=== PATIENT | female | born 1930 | race Caucasian/White ===

== ENCOUNTER 2018-05-25 14:07 | Inpatient (IN) | payer MEDICARE ==
[2018-05-25 14:33] VITALS: BMI 27.6
[2018-05-25] MEDS ORDERED: Acetaminophen 500 MG TAB PO PRN (19:53)
[2018-05-25] MEDS ORDERED: Ondansetron ODT 4 MG TAB PO PRN (19:53)
[2018-05-25] MEDS ORDERED: Ondansetron PF 4 MG/2 ML Vial IVP PRN (19:53)
[2018-05-25] MEDS ORDERED: hydrALAZINE 20 MG/ML VIAL SLOW IVP PRN (19:53)
--- NOTE | 2018-05-25 19:54 | CON ---
DATE OF CONSULTATION: 05/25/2018 GASTROENTEROLOGY CONSULTATION CHIEF COMPLAINT: GI bleeding. HISTORY OF PRESENT ILLNESS: Ms. Burleson is an 88-year-old woman who had onset of red bloody stool s on Tuesday. She went to the hospital in [place] and was admitted and has continued to have red bloody stools daily since then. She was doing better on Tuesday and ate some food and then later that evening again started having bleeding again. She received 4 units transfusion over the course of at hospitalization. Ultimately, this morning due to the repeated requirement for blood transfusion a nd ongoing bleeding lasting longer than the usual diverticular bleed, she was transferred from [facility] to [place] for further care. She has had no bloody bowel movement today so far; however, she has had blood on the toilet paper just when wiping. She had her last blood transfusion last night. Her last bloody stool was yesterday. She has had no nausea or vomiting and no abdominal pain. She h ad a diverticular bleed back in 2014 and underwent upper and lower endoscopy by Dr. Marcial. She had a couple of polyps removed at that time. Left-sided diverticulosis was seen. She was admitted later t hat same month in 2014 and had a bleeding scan, which was negative. She has had no further GI bleedi ng over the last 3-1/2 years until now. PAST MEDICAL HISTORY: 1. Recurrent lower gastrointestinal bleed secondary to diverticulosis. 2. Hypertension. 3. Hyperlipidemia. PAST SURGICAL HISTORY: Mastectomy for breast cancer, hysterectomy, cholecystectomy, EGD and colonosc opy. FAMILY HISTORY: Negative for GI malignancy. SOCIAL HISTORY: No alcohol, tobacco or drugs. ALLERGIES: OMAIRA INHIBITORS. MEDICATIONS: Meloxicam, pantoprazole, ferrous sulfate, diltiazem, alprazolam, MiraLax 17 grams daily . REVIEW OF SYSTEMS: Negative x10 systems reviewed except as stated in the history of present illness. PHYSICAL EXAMINATION: VITAL SIGNS: Temperature 98.1, pulse 67, blood pressure 155/71. GENERAL: She is in no acute distress, alert and oriented x3. HEENT: Eyes have no scleral icterus. Oropharynx is clear without lesions. NECK: No cervical or supraclavicular lymphadenopathy. LUNGS: Clear to auscultation bilaterally. HEART: Regular rate and rhythm without murmur. ABDOMEN: Soft, nontender, nondistended. Bowel sounds are present. EXTREMITIES: No lower extremity edema. NEUROLOGIC: Cranial nerves are grossly intact. IMPRESSION: Recurrent diverticular bleeding, required blood transfusion. She had colonoscopy in that did show bloody effluent, but no focal diverticulum identified at that time as the bleeding so urce. She had left-sided diverticulosis seen. Upper endoscopy was negative. RECOMMENDATIONS: Given that she is still passing some red blood, however, smaller volume today, we w ill follow through with bleeding scan now. If the bleeding scan is negative, then we will continue c onservative management. If the bleeding scan shows ongoing active bleeding, then we will consider co lonoscopy as the bleeding has been going on for 5 days now and she is requiring multiple units of tra nsfusion.
[2018-05-25] MEDS ORDERED: Potassium Chloride 20 MEQ TAB PO SCH (20:30)
[2018-05-25] MEDS ORDERED: Prevnar 13-Val Conj/PF 0.5 ML SYRINGE IM ONE (21:00)
--- NOTE | 2018-05-25 21:29 | NM ---
NUCLEAR MEDICINE GI BLEEDING EXAMINATION 05/25/18 RADIOPHARMACEUTICAL: 27 millicuries of technetium 99m tagged RBC IV. INDICATION: Diverticular bleed. FINDINGS: No abnormal focal collection of radiotracer that accumulates with time and move with time is demonstr ated to suggest active GI bleeding. Urinary bladder activity and urinary excretory activity is seen o verlying the lower pelvis. Blood pool activity is seen within the background. IMPRESSION: No evidence of active GI bleed demonstrated. POS: ONEMY
[2018-05-25] MEDS: Ferrous Sulfate 325 MG TAB PO SCH (21:30)
[2018-05-25] MEDS: Temazepam 15 MG CAP PO PRN (21:30)
[2018-05-25] MEDS: ALPRAZolam 0.5 MG TAB PO SCH (21:30)
--- NOTE | 2018-05-26 01:54 | HP ---
DATE OF ADMISSION: 05/25/2018 PRIMARY CARE PROVIDER: Tyrone Neil M.D. CHIEF COMPLAINT: GI bleed. HISTORY OF PRESENT ILLNESS: This is an 88-year-old female who presented to [facility] in transfer from [facility] where patient was recently admitted for approx imately 4-5 days for gastrointestinal bleed, suspected diverticular in source. The patient underwent CT of the abdomen and pelvis on 05/23/2018 showing moderate colonic diverticulosis involving the sánchez cending and sigmoid colon. The patient received a total of 4 units of packed red blood cells during her hospital course with hemoglobin ranging between 6.6 to 9.6. The patient received IV fluids as we ll as general supportive care; however, had recurrent hematochezia, prompting her attending physician Dr. Raji Parker to transfer to [facility] for GI consultation and evaluation. The tamar ent states she had episode of diverticular bleed in 2014 and was admitted to [facility] in 0 02/2015. The patient was conservatively managed during the admission in 2014 with resolution of her s ymptoms. The patient denies any specific abdominal pain and states she has had very little to eat ov er the last 4-5 days, mainly liquids and soft diet. The patient denies any fever, chills, nausea, or vomiting. The patient denies taking any chronic anti-inflammatories or oral anticoagulation medicat ions. PAST MEDICAL HISTORY: 1. Diverticulosis with diverticular bleed in 2014. 2. Hypertension. 3. Hyperlipidemia. 4. Anxiety disorder. PAST SURGICAL HISTORY: 1. Status post left breast mastectomy. 2. Status post total hysterectomy. 3. Status post cholecystectomy. CURRENT MEDICATIONS: 1. Xanax 0.5 mg p.o. b.i.d. 2. Mobic 15 mg p.o. daily. 3. Diltiazem CD 300 mg p.o. daily. 4. Ferrous sulfate 325 mg p.o. b.i.d. 5. Protonix 40 mg p.o. daily. 6. MiraLax 17 grams p.o. daily. ALLERGIES: OMAIRA INHIBITORS. FAMILY HISTORY: Mother with breast cancer. Father with coronary artery disease. SOCIAL HISTORY: The patient resides in [place], [place]. Accompanied by her daughter in the hospit al. No current alcohol, tobacco or illicit drug use. Functional of all activities of daily living. REVIEW OF SYSTEMS: The following complete review of systems was negative, unless otherwise mentioned in the HPI or below: Constitutional: Weight loss or gain, ability to conduct usual activities. Ski n: Rash, itching. Eyes: Double vision, pain. ENT/Mouth: Nose bleeding, neck stiffness, pain, tend erness. Cardiovascular: Palpitations, dyspnea on exertion, orthopnea. Respiratory: Shortness of b reath, wheezing, cough, hemoptysis, fever or night sweats. Gastrointestinal: Poor appetite, abdomin al pain, heartburn, nausea, vomiting, constipation, or diarrhea. Genitourinary: Urgency, frequency, dysuria, nocturia. Musculoskeletal: Pain, swelling. Neurologic/Psychiatric: Anxiety, depression. Allergy/Immunologic: Skin rash, bleeding tendency. Otherwise negative except as stated per HPI. PHYSICAL EXAMINATION: VITAL SIGNS: On admission, blood pressure 155/71, pulse 67, respiratory rate 20, temperature 98.1 de grees Fahrenheit, O2 saturation 99% on room air. GENERAL APPEARANCE: This is an 88-year-old female, alert and oriented x3, pleasant, respon sive, in no acute distress. HEENT: Pupils are equal, round, and reactive to light and accommodation. Extraocular muscles are in tact. No scleral icterus, no conjunctival injection. Nares patent. OP is clear. Teeth in good rep air. NECK: Supple, no cervical adenopathy, no thyromegaly, no carotid bruits, no JVD appreciated. Cervic al spine with full active and passive range of motion. No meningeal signs appreciated. CHEST: Lungs are clear to auscultation bilaterally. CARDIOVASCULAR: S1, S2, without noted murmur, rub or gallop. ABDOMEN: Rounded, soft, nontender, nondistended. Bowel sounds are positive in all four quadrants. There is no hepatosplenomegaly, no abdominal bruits, no rebound or guarding appreciated. EXTREMITIES: Warm and dry with fair turgor. No clubbing, cyanosis or asymmetric edema appreciated. Multiple bruises noted on the upper extremities and forearms. NEUROLOGIC: Cranial nerves II-XII are grossly intact. No focal or lateralizing signs appreciated. PERTINENT LABORATORY AND X-RAY FINDINGS: Sodium 139, potassium 3.0, chloride 104, CO2 of 27, BUN 10. 9, creatinine 0.6. LFTs within normal limits. CBC showed a white blood cell count of 6.83; hemoglob in 8.9, previously noted 6.7; hematocrit 25.2; platelet count [address] of th e abdomen and pelvis dated 05/23/2018 showed diverticulosis of the descending and sigmoid colon with mild fat stranding giving an appearance of chronic changes with slight wall thickening. ASSESSMENT AND PLAN: 1. Lower gastrointestinal bleed. Suspect diverticular in source given patient's history and finding s on CT imaging. Status post 4 units of packed red blood cells over the last 5 days. Tagged red blo od cell bleeding scan performed on 05/25/2018 showed no evidence of acute blood loss. Continue seria l CBC assessment and repeat hemoglobin in the a.m. 2. Acute blood loss anemia secondarily to gastrointestinal bleed. See #1 above. Repeat CBC in the a.m. Avoid anticoagulation and NSAIDs. 3. Hypertension. Resume home antihypertensive regimen and monitor clinical response. 4. Hypokalemia. Potassium chloride 40 mEq p.o. b.i.d. and repeat potassium level in the a.m. 5. Anxiety disorder. Resume home Xanax 0.5 mg p.o. b.i.d. 6. Prophylaxis. Sequential compression devices while in bed. PT for ambulation and functional asse ssment. 7. Code status is FULL. Surrogate medical decision maker is the patient's daughter.
[2018-05-26 05:41] LABS: Anion Gap 9 mmol/L (10-20); BUN (Urea Nitrogen) 10 mg/dL (9.8-20.1); Calc. Creatinine Clearance 70 mL/min (70-130); Carbon Dioxide 29 mmol/L (23-31); Chloride 103 mmol/L (98-107); Estimated GFR-MDRD 89; Glucose 86 mg/dL (83-110); Potassium 3.7 mmol/L (3.5-5.1); Sodium 137 mmol/L (136-145)
[2018-05-26 05:44] LABS: Band 8 % (5-11); Eosinophils 3 % (0-10); Hemoglobin 8.8 g/dL (12.0-16.0); Lymphocytes 14 % (21-51); MDiff Complete? YES; Mean Corpuscular HGB CONC 32.5 g/dL (32.0-36.0); Mean Corpuscular Hemoglobin 30.2 pg (27.0-31.0); Mean Corpuscular Volume 92.8 fL (78.0-98.0); Mean Platelet Volume 7.3 fL (7.4-10.4); Monocytes 10 % (0-10); Neutrophil 65 % (42-75); Platelet Count 226 thou/uL (130-400); RBC Distribution Width 14.1 % (11.5-14.5); White Blood Cell (WBC) Count 6.5 thou/uL (4.8-10.8)
[2018-05-26] MEDS: Ferrous Sulfate 325 MG TAB PO SCH ×2 (08:30→20:31)
[2018-05-26] MEDS: ALPRAZolam 0.5 MG TAB PO SCH ×2 (08:30→20:31)
[2018-05-26] MEDS: Potassium Chloride 20 MEQ TAB PO SCH ×2 (08:30→16:18)
[2018-05-26] MEDS: Meloxicam 15 MG TAB PO SCH (08:30)
[2018-05-26] MEDS: Diltiazem HCl CD 300 mg Capsule PO SCH (08:32)
--- NOTE | 2018-05-26 16:12 | PDOC.PN ---
- Subjective Encounter Start Date: 05/26/18 Encounter Start Time: 16:00 Subjective: f/u for GI bleed likely diverticular in origin. No new blood loss noted -: and tolerating po intake. - Objective Resuscitation Status: Resuscitation Status FULL:Full Resuscitation MAR Reviewed: Yes Vital Signs & Weight: Vital Signs (12 hours) Temp Pulse Resp BP BP Pulse Ox 05/26/18 11:28 98 F 59 L 16 137/72 96 05/26/18 08:32 67 160/68 H 05/26/18 08:00 97.7 F 67 18 160/68 H 95 05/26/18 04:54 97.9 F 62 16 139/73 96 Weight Weight 160 lb 14.999 oz Result Diagrams: 05/26/18 03:58 05/26/18 03:58 Radiology Reviewed by me: Yes (Tagged RBC scan - negative) Phys Exam - Physical Examination Constitutional: NAD HEENT: PERRLA, sclera anicteric, oral pharynx no lesions Neck: no nodes, no JVD, supple, full ROM Respiratory: no wheezing, no rales, no rhonchi, clear to auscultation bilateral S1, S2 Cardiovascular: RRR, no significant murmur, no rub, gallop Gastrointestinal: soft, non-tender, no distention, positive bowel sounds Musculoskeletal: no edema, pulses present Neurological: normal sensation, moves all 4 limbs Psychiatric: normal affect, A&O x 3 Skin: normal turgor, cap refill <2 seconds Dx/Plan (1) Lower GI bleed Code(s): K92.2 - GASTROINTESTINAL HEMORRHAGE, UNSPECIFIED Status: Acute Comment: Suspected diverticular source, stable, serial H/H (2) Acute blood loss anemia Code(s): D62 - ACUTE POSTHEMORRHAGIC ANEMIA Status: Acute Comment: Stable currently, repeat CBC in am (3) HTN (hypertension) Code(s): I10 - ESSENTIAL (PRIMARY) HYPERTENSION Status: Chronic Qualifiers: Hypertension type: essential hypertension Qualified Code(s): I10 - Essential (primary) hypertension Comment: Stable, resume home BP regimen (4) Hypokalemia Code(s): E87.6 - HYPOKALEMIA Status: Acute Comment: Resolved, serial K+ monitoring (5) Anxiety disorder Code(s): F41.9 - ANXIETY DISORDER, UNSPECIFIED Status: Chronic Comment: Stable - Plan plan discussed w/ family, PT/OT, social media manager, out of bed/ambulate, DVT proph w/SCDs Stable overall -: PT for functional assessment -: Avoid NSAIDs and anticoagulants -: FeSO4 325mg BID -: AM lab: CBC * Home in am
[2018-05-26] MEDS: Temazepam 15 MG CAP PO PRN (20:31)
--- NOTE | 2018-05-26 22:53 | PRG ---
DATE OF SERVICE: 05/26/2018 SUBJECTIVE: Ms. Burleson has had no bowel movement today. She is tolerating a solid diet well. OBJECTIVE: VITAL SIGNS: Temperature 98.7, pulse 63, blood pressure 130/71. GENERAL: She is in no acute distress. She is alert and oriented. LUNGS: Clear to auscultation bilaterally. HEART: Regular rate and rhythm without murmur. ABDOMEN: Soft, nontender, nondistended, bowel sounds are present. EXTREMITIES: No lower extremity edema. IMPRESSION: Diverticular bleed. Her hemoglobin improved at 8.8. She has had no further overt bleed ing since the day before yesterday. She is tolerating a solid diet. RECOMMENDATIONS: 1. She should be ready to discharge home tomorrow morning if she has no further bleeding. If she bae s repeat bleeding again in the future, then I would stop the Meloxicam. 2. Continue iron supplementation.
[2018-05-27 05:29] LABS: Eosinophils 3 % (0-10); Hemoglobin 8.6 g/dL (12.0-16.0); Lymphocytes 33 % (21-51); MDiff Complete? YES; Mean Corpuscular HGB CONC 32.3 g/dL (32.0-36.0); Mean Corpuscular Hemoglobin 30.2 pg (27.0-31.0); Mean Corpuscular Volume 93.6 fL (78.0-98.0); Mean Platelet Volume 6.7 fL (7.4-10.4); Monocytes 10 % (0-10); Neutrophil 51 % (42-75); Platelet Count 231 thou/uL (130-400); RBC Distribution Width 14.1 % (11.5-14.5); Reactive Lymphocytes 3 % (0-10); Red Blood Cell (RBC) Count 2.84 mill/uL (4.20-5.40); White Blood Cell (WBC) Count 7.8 thou/uL (4.8-10.8)
[2018-05-27 07:35] VITALS: BP 162/77; TEMP 97.6
[2018-05-27] MEDS: Potassium Chloride 20 MEQ TAB PO SCH (08:57)
[2018-05-27] MEDS: Ferrous Sulfate 325 MG TAB PO SCH (08:57)
[2018-05-27] MEDS: ALPRAZolam 0.5 MG TAB PO SCH (08:57)
[2018-05-27] MEDS: Diltiazem HCl CD 300 mg Capsule PO SCH (08:57)
[2018-05-27] MEDS: Meloxicam 15 MG TAB PO SCH (09:01)
--- NOTE | 2018-05-27 09:47 | DIS ---
DATE OF ADMISSION: 05/25/2018 DATE OF DISCHARGE: 05/27/2018 DISCHARGE DIAGNOSES: 1. Lower gastrointestinal bleed, suspected diverticular etiology, stable. 2. Acute blood loss anemia, status post 4 units of packed red blood cells. 3. Hypertension, stable. 4. Hypokalemia, resolved. 5. Anxiety disorder. CONSULTATIONS: Dr. Samy Valdez with GI Service. PERTINENT LABORATORY DATA AND X-RAY FINDINGS: Hemoglobin ranged between 8.6-8.8. Tagged red blood c ell bleeding scan dated 05/25/2018 showed no evidence of active gastrointestinal bleed. HOSPITAL COURSE: The patient was admitted to the medical floor after presenting with lower gastroint estinal bleed, status post 4 units of packed red blood cells after transferring from [facility]. The patient underwent a tagged red blood cell bleeding scan showing no evidence of active bleedi ng and the patient was monitored for serial hemoglobins. The patient's overall hemoglobin value abdirahman ined stable throughout the hospital course and the patient exhibited no recurrence of active gastroin testinal bleed. The patient was resumed on regular diet and tolerated without complication. Vital s igns remained stable throughout the hospital course and the patient was voiding appropriately. I hav e examined the patient at the time of discharge and discussed followup instructions. The patient and family verbalized understanding and agreement and ready for discharge on 05/27/2018. DISCHARGE MEDICATIONS: 1. Xanax 0.5 mg p.o. b.i.d. 2. Cardizem-CD 300 mg p.o. daily. 3. Ferrous sulfate 325 mg p.o. b.i.d. 4. Protonix 40 mg p.o. daily. 5. MiraLax 17 grams p.o. daily. FOLLOWUP: The patient may follow up with her primary care provider, Dr. Raji Parker within 7 day s of discharge. CONDITION ON DISCHARGE: Stable. ACTIVITY: ad coni. SPECIAL INSTRUCTIONS: Repeat CBC at first followup visit with primary care provider. DIET: Regular. CODE STATUS: FULL. DISPOSITION: Home, 05/27/2018.
--- NOTE | 2018-05-27 10:50 | PRG ---
DATE OF SERVICE: 05/27/2018 SUBJECTIVE: Ms. Burleson has had no bowel movement since she has been here. She is tolerating a s olid diet. OBJECTIVE: VITAL SIGNS: Temperature 97.6, pulse 67, blood pressure 162/77. ABDOMEN: Soft, nontender, nondistended. Bowel sounds are present. LABORATORY DATA: Her hemoglobin is stable at 8.6. IMPRESSION: Diverticular bleed, resolved. RECOMMENDATIONS: 1. She should be ready to discharge home today. 2. She has had problems with chronic constipation. She has been taking a tablespoon of lactulose on ce daily. She can add a dose of MiraLax 17 grams daily to this as well and increase her water intake . She can follow up in GI clinic to adjust laxatives further as needed.
== END 2018-05-27 10:42 | disposition home or self-care (01) | DRG 378 ==
LOC: T4-A 14:07
PROVIDERS: ADMIT Family Medicine; ATTEND Family Medicine
DX: K57.31 Diverticulosis of large intestine without perforation or abscess with bleeding (principal); D62 Acute posthemorrhagic anemia; I10 Essential (primary) hypertension; E87.5 Hyperkalemia; F41.9 Anxiety disorder, unspecified; E87.6 Hypokalemia; Z85.3 Personal history of malignant neoplasm of breast; Z90.12 Acquired absence of left breast and nipple; Z90.49 Acquired absence of other specified parts of digestive tract; Z82.49 Family history of ischemic heart disease and other diseases of the circulatory system; Z80.3 Family history of malignant neoplasm of breast
CPT/HCPCS: 36415; 78278; 80048; 85007; 85027; A9604